=== PATIENT | female | born 1985 | race Two or more races ===

== ENCOUNTER 2017-12-17 11:19 | Emergency (ER) | payer SELFPAY ==
[~2017-12-17] VITALS: Ht 170.2 cm; Wt 99.8 kg
[2017-12-17 12:10] LABS: Basophils # (auto) 0.1 uL; Basophils % (auto) 0.7 % (0.0-2.0); Eosinophils # (auto) 0.2 uL; Eosinophils % (auto) 3.2 % (0.0-7.0); Hematocrit 40.8 % (36.0-46.0); Hemoglobin 13.4 g/dL (12.2-16.2); Lymphocytes # (auto) 2.1 uL; Lymphocytes % (auto) 27.4 % (10.0-50.0); Mean Corpuscular Hemoglobin 30.1 pg (28.0-32.0); Mean Corpuscular Hgb Conc. 32.8 g/dL (32.0-36.0); Mean Corpuscular Volume 91.7 fL (80.0-100.0); Monocytes # (auto) 0.5 uL; Monocytes % (auto) 6.1 % (0.0-12.0); Neutrophils # (auto) 4.7 uL; Neutrophils % (auto) 62.6 % (37.0-80.0); Platelet Count (auto) 302 10^3/uL (140-450); Red Blood Cells 4.45 10^6/uL (4.0-5.20); Red Cell Distribution Width 13.3 % (11.8-14.3); White Blood Cell 7.6 10^3/uL (4.4-10.8)
[2017-12-17 12:32] LABS: Albumin 3.3 g/dL (3.4-5.0); BUN/Creatinine Ratio 17.2; Calcium 8.1 mg/dL (8.5-10.1); Potassium 3.5 mmol/L (3.5-5.1)
[2017-12-17 12:34] LABS: Bilirubin, Total 0.5 mg/dL (0.2-1.0); Total Protein 7.3 g/dL (6.4-8.2)
[2017-12-17 13:14] VITALS: BP 120/63
[2017-12-17] MEDS ORDERED: SODIUM CHLORIDE 0.9% 1,000 ML IVB ONE (13:28)
[2017-12-17] MEDS ORDERED: ONDANSETRON HCL 4 MG/2 ML VIAL IV ONE (13:30)
[2017-12-17] MEDS ORDERED: FAMOTIDINE (10MG/ML) 2ML VL IV ONE (13:30)
[2017-12-17] MEDS ORDERED: PANTOPRAZOLE 40 MG/10 ML VIAL IV ONE (14:00)
[2017-12-17] MEDS ORDERED: KETOROLAC TROMETH 30 MG/ML 1ML VIAL IV ONE (15:45)
== END 2017-12-17 16:09 | disposition home or self-care (01) ==
LOC: ER 11:19
DX: K52.9 Noninfective gastroenteritis and colitis, unspecified (principal); K80.20 Calculus of gallbladder without cholecystitis without obstruction
CPT/HCPCS: 36415; 74176; 80053; 83690; 85025; 93005; 96361; 96374; 96375; 99285; C9113; J1885; J2405; J7030

== ENCOUNTER 2017-12-28 14:10 | Emergency (ER) | payer SELFPAY ==
[~2017-12-28] VITALS: Ht 170.2 cm; Wt 100.7 kg
[2017-12-28 15:06] LABS: Albumin 3.7 g/dL (3.4-5.0); BUN/Creatinine Ratio 20.7; Bilirubin, Total 0.5 mg/dL (0.2-1.0); Calcium 8.9 mg/dL (8.5-10.1); Potassium 3.8 mmol/L (3.5-5.1); Total Protein 7.8 g/dL (6.4-8.2)
[2017-12-28 15:23] LABS: Basophils # (auto) 0.1 uL; Basophils % (auto) 0.7 % (0.0-2.0); Eosinophils # (auto) 0.4 uL; Eosinophils % (auto) 3.8 % (0.0-7.0); Hematocrit 41.8 % (36.0-46.0); Hemoglobin 13.9 g/dL (12.2-16.2); Lymphocytes # (auto) 2.5 uL; Lymphocytes % (auto) 25.8 % (10.0-50.0); Mean Corpuscular Hemoglobin 30.1 pg (28.0-32.0); Mean Corpuscular Hgb Conc. 33.3 g/dL (32.0-36.0); Mean Corpuscular Volume 90.4 fL (80.0-100.0); Monocytes # (auto) 0.6 uL; Monocytes % (auto) 6.2 % (0.0-12.0); Neutrophils # (auto) 6.2 uL; Neutrophils % (auto) 63.5 % (37.0-80.0); Nucleated Red Blood Cells % 0.2 %; Platelet Count (auto) 368 10^3/uL (140-450); Red Blood Cells 4.62 10^6/uL (4.0-5.20); White Blood Cell 9.8 10^3/uL (4.4-10.8)
[2017-12-28 16:22] LABS: Urine Bacteria FEW /hpf (None Seen); Urine Blood Negative /uL (Negative); Urine Mucus FEW (None Seen); Urine Specific Gravity 1.029 (1.001-1.035); Urine WBC 13 /hpf (0 - 5)
[2017-12-28] MEDS ORDERED: HYDROcodone-ACET 5/325MG TAB PO ONE (23:15)
[2017-12-28] MEDS ORDERED: SODIUM CHLORIDE 0.9% 1,000 ML IV ONE (23:15)
[2017-12-29 03:44] VITALS: BP 114/68
== END 2017-12-29 03:03 | disposition home or self-care (01) ==
LOC: ER 14:10
DX: K80.20 Calculus of gallbladder without cholecystitis without obstruction (principal); Z88.0 Allergy status to penicillin
CPT/HCPCS: 36415; 74176; 80053; 81001; 81025; 83690; 85025

== ENCOUNTER 2018-09-12 09:45 | Inpatient (IN) | payer MEDICAID ==
[~2018-09-12] VITALS: Ht 170.2 cm; Wt 109.8 kg
[2018-09-12 10:29] LABS: Basophils # (auto) 0.1 uL; Basophils % (auto) 0.7 % (0.0-2.0); Eosinophils # (auto) 0.3 uL; Eosinophils % (auto) 2.7 % (0.0-7.0); Hematocrit 44.3 % (36.0-46.0); Hemoglobin 14.7 g/dL (12.2-16.2); Lymphocytes # (auto) 1.6 uL; Lymphocytes % (auto) 17.7 % (10.0-50.0); Mean Corpuscular Hemoglobin 29.2 pg (28.0-32.0); Mean Corpuscular Hgb Conc. 33.1 g/dL (32.0-36.0); Mean Corpuscular Volume 88.2 fL (80.0-100.0); Monocytes # (auto) 0.6 uL; Monocytes % (auto) 6.8 % (0.0-12.0); Neutrophils # (auto) 6.7 uL; Neutrophils % (auto) 72.1 % (37.0-80.0); Platelet Count (auto) 342 10^3/uL (140-450); Red Blood Cells 5.02 10^6/uL (4.0-5.20); Red Cell Distribution Width 13.9 % (11.8-14.3); White Blood Cell 9.3 10^3/uL (4.4-10.8)
[2018-09-12] MEDS ORDERED: SODIUM CHLORIDE 0.9% 1,000 ML IV ONE ×2 (10:34)
[2018-09-12 10:40] LABS: Albumin 3.6 g/dL (3.4-5.0); Amylase 54 U/L (25-115); Anion Gap 5 (5-15); Calcium 8.4 mg/dL (8.5-10.1); Carbon Dioxide 25 mmol/L (21-32); Chloride 106 mmol/L (98-107); Glucose 107 mg/dL (74-106); Lipase 123 U/L (73-393); Potassium 3.7 mmol/L (3.5-5.1); Sodium 136 mmol/L (136-145)
[2018-09-12 10:43] LABS: Alanine Aminotransferase 47 U/L (13-56); Alkaline Phosphatase 81 U/L (45-117); Aspartate Aminotransferase 22 U/L (15-37); Bilirubin, Total 1.1 mg/dL (0.2-1.0); GFR African American > 60 mL/min; GFR Non-African American > 60 mL/min; Total Protein 7.8 g/dL (6.4-8.2)
[2018-09-12 11:54] LABS: Blood Urea Nitrogen 11 mg/dL (7-18)
[2018-09-12 12:28] LABS: Urine Bacteria NONE SEEN /hpf (None Seen); Urine Blood 2+ /uL (Negative); Urine Hyaline Cast FEW /lpf (0 - 2); Urine Mucus FEW (None Seen); Urine WBC 7 /hpf (0 - 5)
[2018-09-12] MEDS ORDERED: MORPHINE SULFATE 10 MG/ML INJ 1ML SDV IV PRN (13:30)
[2018-09-12] MEDS ORDERED: ACETAMINOPHEN 500 MG TAB PO PRN (13:30)
[2018-09-12] MEDS ORDERED: NITROGLYCERIN 0.4 MG SL TAB SL PRN (13:30)
[2018-09-12] MEDS: metroNIDAZOLE 500MG/100ML 100 ML IV SCH ×2 (13:45→19:23)
[2018-09-12] MEDS: SODIUM CHLORIDE 0.9% 1,000 ML IV SCH ×2 (13:45→19:23)
[2018-09-12 13:54] LABS: INR 0.94 (0.9-1.15); Partial Thromboplastin Time 28.8 sec (23.78-33.04); Prothrombin Time 10.1 sec (9.27-12.13)
[2018-09-12 17:00] VITALS: BP 111/66
[2018-09-12] MEDS: MORPHINE SULFATE 10 MG/ML INJ 1ML SDV IV PRN (17:39)
[2018-09-12] MEDS: ONDANSETRON HCL 4 MG/2 ML VIAL IV PRN (17:39)
--- NOTE | 2018-09-12 19:40 | NUR ---
OPENING NOTES RECEIVED REPORT FROM DAYSHIFT NURSE. PT IS AWAKE AND ALERT X 4 WITH NO S/S OF DISTRESS NOR PAIN. BED IS IN LOWEST POSITION WITH BRAKES LOCKED AND CALL LIGHT IS WITHIN REACH. SIDE RAILS UP X 2. DISCUSSED POC WITH PATIENT. WILL CONTINUE TO MONITOR.
[2018-09-12 20:30] VITALS: BP 87/48
[2018-09-12] MEDS: HYDROcodone-ACET 5/325MG TAB PO PRN (23:03)
[2018-09-12] MEDS: DOCUSATE SOD 100 MG CAP PO SCH (23:03)
[2018-09-13] MEDS: metroNIDAZOLE 500MG/100ML 100 ML IV SCH ×4 (02:00→19:55)
[2018-09-13 05:01] VITALS: BP 82/45
[2018-09-13] MEDS: SODIUM CHLORIDE 0.9% 1,000 ML IV SCH ×3 (05:05→21:56)
[2018-09-13] MEDS: HYDROcodone-ACET 5/325MG TAB PO PRN ×3 (05:08→18:50)
[2018-09-13 06:19] LABS: Basophils # (auto) 0 uL; Basophils % (auto) 0.5 % (0.0-2.0); Eosinophils # (auto) 0.2 uL; Eosinophils % (auto) 3.6 % (0.0-7.0); Hematocrit 37.2 % (36.0-46.0); Hemoglobin 12.2 g/dL (12.2-16.2); Lymphocytes % (auto) 36.9 % (10.0-50.0); Mean Corpuscular Hemoglobin 29.2 pg (28.0-32.0); Mean Corpuscular Hgb Conc. 32.8 g/dL (32.0-36.0); Mean Corpuscular Volume 88.9 fL (80.0-100.0); Monocytes # (auto) 0.5 uL; Monocytes % (auto) 8.8 % (0.0-12.0); Neutrophils # (auto) 2.7 uL; Neutrophils % (auto) 50.2 % (37.0-80.0); Nucleated Red Blood Cells % 0.2 %; Platelet Count (auto) 258 10^3/uL (140-450); Red Blood Cells 4.18 10^6/uL (4.0-5.20); White Blood Cell 5.4 10^3/uL (4.4-10.8)
[2018-09-13 06:59] LABS: Chloride 112 mmol/L (98-107); Potassium 3.7 mmol/L (3.5-5.1); Sodium 141 mmol/L (136-145)
[2018-09-13 07:08] LABS: Alanine Aminotransferase 35 U/L (13-56); Albumin 2.7 g/dL (3.4-5.0); Alkaline Phosphatase 60 U/L (45-117); Anion Gap 4 (5-15); Aspartate Aminotransferase 17 U/L (15-37); BUN/Creatinine Ratio 10.3; Bilirubin, Total 0.7 mg/dL (0.2-1.0); Blood Urea Nitrogen 7 mg/dL (7-18); Calcium 7.6 mg/dL (8.5-10.1); Carbon Dioxide 25 mmol/L (21-32); GFR African American > 60 mL/min; GFR Non-African American > 60 mL/min; Glucose 110 mg/dL (74-106); Total Protein 5.8 g/dL (6.4-8.2)
--- NOTE | 2018-09-13 07:30 | NUR ---
OPENING NOTE ASSUMED CARE OF PT. PT IS LAYING ON BED, HOB SEMI-FOWLERS. PT IS A&O X4. ON ROOM AIR. O2 SATURATION 94%. NO SIGNS OF SOB/DISTRESS NOTED. SAFETY PRECAUTIONS IN PLACE INCLUDING BED SET TO BED SET TO LOWEST POSITION/LOCKED. BEDSIDE RAILS UP X2. CALL LIGHT WITHIN REACH. INSTRUCTED PT TO CALL FOR ASSISTANCE. DISCUSSED POC WITH PT. PT VERBALIZED UNDERSTANDING. WILL CONTINUE TO MONITOR Q 1HR AND PRN.
[2018-09-13 08:15] VITALS: BP 82/41
[2018-09-13] MEDS: DOCUSATE SOD 100 MG CAP PO SCH ×2 (10:24→22:05)
[2018-09-13 12:21] VITALS: BP 90/55
[2018-09-13] MEDS: LEVOFLOXACIN 500MG 100 ML IV SCH (15:41)
[2018-09-13 16:36] VITALS: BP 84/44
--- NOTE | 2018-09-13 18:30 | NUR ---
IV insertion IV access obtained, via clean sterile technique by inserting 20 gauge catheter at left FA after 2 attempt(s). IV secured properly. No trauma to site. Patient tolerated well.
--- NOTE | 2018-09-13 18:35 | NUR ---
IV removal IV DC'd with clean sterile technique, catheter fully intact. Pressure dressing applied to site. Patient tolerated well. NOTE:
[2018-09-13] MEDS: ONDANSETRON HCL 4 MG/2 ML VIAL IV PRN (18:49)
--- NOTE | 2018-09-13 19:37 | NUR ---
CLOSING NOTE ENDORSED CARE TO ADRIAN LANTIGUA.
--- NOTE | 2018-09-13 20:26 | NUR ---
OPENING NOTES RECEIVED REPORT FROM DAYSLAFT NURSE. PT IS AWAKE AND ALERT X 4 WITH NO S/S OF DISTRESS NOR PAIN. PATIENT PLACED UNDER NPO AFTER MIDNIGHT PER PRIMARY MD ORDERS; PATIENT VERBALIZED UNDERSTANDING. BED IS IN LOWEST POSITION WITH BRAKES LOCKED AND CALL LIGHT IS WITHIN REACH. SIDE RAILS UP X 2. DISCUSSED POC WITH PATIENT. WILL CONTINUE TO MONITOR.
--- NOTE | 2018-09-13 20:28 | NUR ---
UA UA SENT TO LAB AT 2009.
[2018-09-13 22:00] VITALS: BP 105/68
[2018-09-13] MEDS: MORPHINE SULFATE 10 MG/ML INJ 1ML SDV IV PRN (22:56)
[2018-09-14] MEDS: metroNIDAZOLE 500MG/100ML 100 ML IV SCH ×4 (03:08→19:41)
[2018-09-14 05:00] VITALS: BP 107/63
[2018-09-14] MEDS: SODIUM CHLORIDE 0.9% 1,000 ML IV SCH ×3 (05:06→21:31)
[2018-09-14 06:12] LABS: Basophils # (auto) 0 uL; Basophils % (auto) 0.5 % (0.0-2.0); Eosinophils # (auto) 0.2 uL; Eosinophils % (auto) 3.7 % (0.0-7.0); Hematocrit 38.2 % (36.0-46.0); Hemoglobin 12.4 g/dL (12.2-16.2); Lymphocytes # (auto) 1.7 uL; Lymphocytes % (auto) 38.3 % (10.0-50.0); Mean Corpuscular Hemoglobin 29.1 pg (28.0-32.0); Mean Corpuscular Hgb Conc. 32.6 g/dL (32.0-36.0); Mean Corpuscular Volume 89.2 fL (80.0-100.0); Monocytes # (auto) 0.4 uL; Monocytes % (auto) 8.5 % (0.0-12.0); Neutrophils # (auto) 2.2 uL; Nucleated Red Blood Cells % 0.1 %; Platelet Count (auto) 256 10^3/uL (140-450); Red Blood Cells 4.28 10^6/uL (4.0-5.20); Red Cell Distribution Width 13.9 % (11.8-14.3); White Blood Cell 4.5 10^3/uL (4.4-10.8)
[2018-09-14 06:36] LABS: Anion Gap 7 (5-15); BUN/Creatinine Ratio 5.4; Blood Urea Nitrogen 3 mg/dL (7-18); Calcium 7.7 mg/dL (8.5-10.1); Carbon Dioxide 25 mmol/L (21-32); Chloride 110 mmol/L (98-107); GFR African American > 60 mL/min; GFR Non-African American > 60 mL/min; Glucose 96 mg/dL (74-106); Potassium 3.5 mmol/L (3.5-5.1); Sodium 142 mmol/L (136-145)
--- NOTE | 2018-09-14 07:20 | NUR ---
OPENING NOTE ASSUMED CARE OF PT. PT IS LAYING ON BED, HOB LOW-FOWLERS. PT IS A&O X4. ON ROOM AIR. O2 SATURATION 95%. NO SIGNS OF SOB/DISTRESS NOTED. SAFETY PRECAUTIONS IN PLACE INCLUDING BED SET TO BED SET TO LOWEST POSITION/LOCKED. BEDSIDE RAILS UP X2. CALL LIGHT WITHIN REACH. INSTRUCTED PT TO CALL FOR ASSISTANCE. DISCUSSED POC WITH PT. PT VERBALIZED UNDERSTANDING. WILL CONTINUE TO MONITOR Q 1HR AND PRN.
[2018-09-14 09:00] VITALS: BP 101/61
[2018-09-14] MEDS: LEVOFLOXACIN 500MG 100 ML IV SCH (09:45)
[2018-09-14] MEDS: DOCUSATE SOD 100 MG CAP PO SCH ×2 (09:45→21:31)
[2018-09-14] MEDS: MORPHINE SULFATE 10 MG/ML INJ 1ML SDV IV PRN ×3 (09:46→22:11)
[2018-09-14] MEDS: ONDANSETRON HCL 4 MG/2 ML VIAL IV PRN (12:21)
[2018-09-14 13:00] VITALS: BP 102/64
[2018-09-14 14:43] LABS: INR 1.05 (0.9-1.15); Partial Thromboplastin Time 27.9 sec (23.78-33.04); Prothrombin Time 11.2 sec (9.27-12.13)
[2018-09-14 17:03] VITALS: BP 119/77
--- NOTE | 2018-09-14 19:19 | NUR ---
CLOSING NOTE ENDORSED CARE TO MEREDITH LANTIGUA.
--- NOTE | 2018-09-14 19:30 | NUR ---
OPENING NOTE REPORT RECEIVED FROM DAY SHIFT RN. PATIENT IS A/OX4 ABLE TO ANSWER ALL QUESTIONS APPROPRIATELY. PATIENT TO BE NPO AFTER MIDNIGHT FOR PROCEDURE TOMORROW. PT AWARE. POC FOR TONIGHT DISCUSSED AND ALL QUESTIONS ANSWERED. WILL MONITOR Q1H PRN THROUGHOUT SHIFT, CALL LIGHT WITHIN REACH.
[2018-09-14 22:00] VITALS: BP 100/61
[2018-09-15] MEDS: metroNIDAZOLE 500MG/100ML 100 ML IV SCH ×4 (01:00→19:45)
[2018-09-15 05:00] VITALS: BP 104/63
[2018-09-15] MEDS: MORPHINE SULFATE 10 MG/ML INJ 1ML SDV IV PRN ×2 (05:14→20:05)
[2018-09-15] MEDS: SODIUM CHLORIDE 0.9% 1,000 ML IV SCH ×3 (05:14→22:12)
[2018-09-15 06:25] LABS: Basophils # (auto) 0 uL; Basophils % (auto) 0.5 % (0.0-2.0); Eosinophils # (auto) 0.1 uL; Eosinophils % (auto) 2.9 % (0.0-7.0); Hematocrit 37.4 % (36.0-46.0); Hemoglobin 12.5 g/dL (12.2-16.2); Lymphocytes # (auto) 1.8 uL; Lymphocytes % (auto) 37.5 % (10.0-50.0); Mean Corpuscular Hemoglobin 29.2 pg (28.0-32.0); Mean Corpuscular Hgb Conc. 33.3 g/dL (32.0-36.0); Mean Corpuscular Volume 87.9 fL (80.0-100.0); Monocytes # (auto) 0.3 uL; Monocytes % (auto) 7.2 % (0.0-12.0); Neutrophils # (auto) 2.5 uL; Neutrophils % (auto) 51.9 % (37.0-80.0); Platelet Count (auto) 282 10^3/uL (140-450); Red Blood Cells 4.26 10^6/uL (4.0-5.20); Red Cell Distribution Width 13.8 % (11.8-14.3); White Blood Cell 4.7 10^3/uL (4.4-10.8)
[2018-09-15 06:39] LABS: Anion Gap 7 (5-15); Blood Urea Nitrogen 5 mg/dL (7-18); Calcium 7.8 mg/dL (8.5-10.1); Carbon Dioxide 24 mmol/L (21-32); Chloride 108 mmol/L (98-107); Glucose 106 mg/dL (74-106); Potassium 3.7 mmol/L (3.5-5.1); Sodium 139 mmol/L (136-145)
[2018-09-15 06:40] LABS: BUN/Creatinine Ratio 7.8; GFR African American > 60 mL/min; GFR Non-African American > 60 mL/min
[2018-09-15] MEDS ORDERED: SUCCINYLCHOLINE CHLORIDE 20 MG/ML 10ML VIAL IV ONE (06:49)
[2018-09-15] MEDS ORDERED: MIDAZOLAM HCL 1MG/1ML-2 ML VIAL ONE (06:54)
[2018-09-15] MEDS ORDERED: fentaNYL CITRATE 100 MCG/2 ML VL ONE (06:54)
[2018-09-15] MEDS ORDERED: KETOROLAC TROMETH 60MG/2ML VIAL IM ONE (06:54)
[2018-09-15] MEDS ORDERED: SODIUM CHLORIDE LOCK 10 ML ONE (06:54)
[2018-09-15] MEDS ORDERED: GLYCOPYRROLATE 0.2 MG/ML 1ML VIAL ONE (06:54)
[2018-09-15] MEDS ORDERED: MEPERIDINE HCL (50 MG/ML) 1 ML VIAL ONE (06:54)
[2018-09-15] MEDS ORDERED: ROCURONIUM 10MG/ML 10ML VIAL IV ONE (06:54)
[2018-09-15] MEDS ORDERED: ONDANSETRON HCL 4 MG/2 ML VIAL ONE (06:54)
[2018-09-15] MEDS ORDERED: PROPOFOL 10 MG/ML 20 ML IV ONE ×2 (06:54→10:41)
[2018-09-15] MEDS ORDERED: NEOSTIGMINE 1 MG/ML INJ (10mg/10ML VIAL) ONE (06:54)
[2018-09-15] MEDS ORDERED: LIDOCAINE HCL 2% TOP JELLY 5ML TOP ONE (06:55)
--- NOTE | 2018-09-15 07:15 | NUR ---
CLOSING NOTE REPORT ENDORSED TO DAY SHIFT RN PT NPO SINCE MIDNIGHT AWAITING PROCEDURE NO S/S OF DISTRESS CALL LIGHT WITHIN REACH
--- NOTE | 2018-09-15 07:20 | NUR ---
OPENING NOTE ASSUMED CARE OF PT. PT IS LAYING ON BED, HOB LOW-FOWLERS. PT IS A&O X4. ON ROOM AIR. O2 SATURATION 91%. NO SIGNS OF SOB/DISTRESS NOTED. SAFETY PRECAUTIONS IN PLACE INCLUDING BED SET TO BED SET TO LOWEST POSITION/LOCKED. BEDSIDE RAILS UP X2. CALL LIGHT WITHIN REACH. INSTRUCTED PT TO CALL FOR ASSISTANCE. DISCUSSED POC WITH PT. PT VERBALIZED UNDERSTANDING. WILL CONTINUE TO MONITOR Q 1HR AND PRN.
[2018-09-15] MEDS ORDERED: METOCLOPRAMIDE HCL 5MG/ml INJ 2ml VIAL IV ONE (07:45)
[2018-09-15] MEDS ORDERED: KETOROLAC TROMETH 30 MG/ML 1ML VIAL IV ONE (07:45)
[2018-09-15] MEDS ORDERED: POVIDONE IODINE 10 % TOPICAL OINT 30GM TOP ONE (08:24)
[2018-09-15] MEDS ORDERED: SIMETHICONE 40 MG/0.6 ML ORAL DROP ONE (08:54)
[2018-09-15 09:20] VITALS: BP 96/58
[2018-09-15] MEDS: LEVOFLOXACIN 500MG 100 ML IV SCH (10:00)
[2018-09-15] MEDS: DOCUSATE SOD 100 MG CAP PO SCH ×2 (10:00→22:00)
--- NOTE | 2018-09-15 10:05 | NUR ---
PATIENT OFF UNIT VIA BED TO OR.
[2018-09-15] MEDS ORDERED: ceFAZolin 1GM/50ML 0 ML IV ONE (10:12)
[2018-09-15] MEDS ORDERED: LEVOFLOXACIN 500MG 100 ML IV ONE (10:13)
[2018-09-15] MEDS: HYDROmorphone HCL 2 MG/ML VL IV PRN ×2 (11:52→12:12)
--- NOTE | 2018-09-15 12:35 | NUR ---
PATIENT BACK ON UNIT VIA BED FROM OR. DRESSING CLEAN, DRY AND INTACT. NO SIGNS OF SOB/DISTRESS NOTED. WILL CONTINUE TO MONITOR.
[2018-09-15 13:00] VITALS: BP 109/73
[2018-09-15] MEDS: ONDANSETRON HCL 4 MG/2 ML VIAL IV PRN (15:13)
--- NOTE | 2018-09-15 15:36 | NUR ---
NUTRITION ASSESSMENT NOTES Please refer to link notes of nutrition screen form filed under the intervention section of the plan of care for further details. Est. Needs: 1600 kcal to 1950 kcal (15-20 kcal/kgBW), 86 gms to 108 gms pro (1.0-1.2 gms/kgIBW: 86 kg). Will continue to monitor pertinent labs and reassess nutrient needs prn Thank you. Addendum: 09/15/18 at [address] Amended: Links added.
[2018-09-15 16:57] VITALS: BP 95/53
[2018-09-15] MEDS: HYDROcodone-ACET 5/325MG TAB PO PRN (17:44)
--- NOTE | 2018-09-15 19:15 | NUR ---
CLOSING NOTE ENDORSED CARE TO MEREDITH LANTIGUA.
--- NOTE | 2018-09-15 19:30 | NUR ---
OPENING NOTE REPORT RECEIVED FROM DAY SHIFT RN PATIENT IS A/OX4 RESTING IN BED. PATIENT C/O 9/10 PAIN TO INCISION SITE. PATIENT HAS 2 ANTERIOR MEDIAL ABDOMEN INCISIONS. DRESSINGS SATURATED WITH OLD BETADINE, NO S/S OF ACTIVE BLEED NOTED. YOLA DRAIN NOTED TO RIGHT LATERAL SIDE DRAINING SANGUINEOUS FLUID. INCENTIVE SPIROMETER AT BEDSIDE, PATIENT ABLE TO REACH 1000ML. SCD'S IN PLACE ON BILATERAL LEGS. POC FOR TONIGHT DISCUSSED, ALL QUESTIONS ANSWERED. WILL MEDICATE PT OR PAIN PER MD ORDER. CALL LIGHT WITHIN REACH.
[2018-09-15 20:05] VITALS: BP 111/62
--- NOTE | 2018-09-15 20:05 | NUR ---
PT REQUESTED MORPHINE FOR PAIN BP CHECKED AND IS AT 111/62, MORPHINE ADMINISTERED ORDERED BY
[2018-09-15 22:00] VITALS: BP 105/61
[2018-09-16] MEDS: metroNIDAZOLE 500MG/100ML 100 ML IV SCH ×3 (01:17→13:22)
[2018-09-16] MEDS: MORPHINE SULFATE 10 MG/ML INJ 1ML SDV IV PRN ×2 (01:27→09:31)
[2018-09-16 04:54] VITALS: BP 111/62
[2018-09-16] MEDS: SODIUM CHLORIDE 0.9% 1,000 ML IV SCH (05:08)
[2018-09-16 06:41] LABS: Basophils # (auto) 0 uL; Basophils % (auto) 0.4 % (0.0-2.0); Eosinophils # (auto) 0.1 uL; Eosinophils % (auto) 1.2 % (0.0-7.0); Hematocrit 36.2 % (36.0-46.0); Hemoglobin 12.2 g/dL (12.2-16.2); Lymphocytes # (auto) 1.2 uL; Lymphocytes % (auto) 18.8 % (10.0-50.0); Mean Corpuscular Hemoglobin 29.3 pg (28.0-32.0); Mean Corpuscular Hgb Conc. 33.6 g/dL (32.0-36.0); Mean Corpuscular Volume 87.1 fL (80.0-100.0); Monocytes # (auto) 0.4 uL; Monocytes % (auto) 6.8 % (0.0-12.0); Neutrophils # (auto) 4.8 uL; Neutrophils % (auto) 72.8 % (37.0-80.0); Platelet Count (auto) 270 10^3/uL (140-450); Red Blood Cells 4.16 10^6/uL (4.0-5.20); White Blood Cell 6.6 10^3/uL (4.4-10.8)
[2018-09-16 06:57] LABS: Chloride 108 mmol/L (98-107); Potassium 3.4 mmol/L (3.5-5.1); Sodium 138 mmol/L (136-145)
--- NOTE | 2018-09-16 07:06 | NUR ---
CLOSING NOTE REPORT ENDORSED TO DAY SHIFT RN PATIENT IS RESTING IN BED, NO S/S OF DISTRESS DRESSINGS TO ABD INTACT, SCD'S IN PLACE, YOLA DRAIN TO BULB SUCTION CALL LIGHT WITHIN REACH
[2018-09-16 07:15] LABS: Anion Gap 5 (5-15); Blood Urea Nitrogen 3 mg/dL (7-18); Calcium 7.8 mg/dL (8.5-10.1); Carbon Dioxide 25 mmol/L (21-32); Glucose 112 mg/dL (74-106)
[2018-09-16 07:24] LABS: GFR African American > 60 mL/min; GFR Non-African American > 60 mL/min
--- NOTE | 2018-09-16 07:30 | NUR ---
Opening Shift Note Assumed care of patient, awake and alert, lying on bed. No S/S of distress/SOB or pain. Instructed on POC and to call for assist PRN, will continue to monitor for changes Q1hr and PRN.
[2018-09-16] MEDS: DOCUSATE SOD 100 MG CAP PO SCH (09:15)
[2018-09-16] MEDS: LEVOFLOXACIN 500MG 100 ML IV SCH (09:15)
[2018-09-16 10:12] VITALS: BP 120/67
--- NOTE | 2018-09-16 11:04 | NUR ---
DIET PT REQUESTING TO ADVANCE HER DIET, PT CURRENTLY ON CLEAR LIQUID . PAGED DR. LAWTON, WAITING FOR CALL BACK.
[2018-09-16] MEDS ORDERED: HYDR-4683 PO ×2 (11:38→11:39)
[2018-09-16] MEDS ORDERED: ACE650RS PR (11:39)
[2018-09-16] MEDS ORDERED: LEVO500T21 PO (11:39)
[2018-09-16] MEDS ORDERED: METR500T PO (11:39)
[2018-09-16] MEDS: POTASSIUM CHL 20 Meq TABLET PO SCH ×2 (11:48→15:29)
--- NOTE | 2018-09-16 11:56 | NUR ---
Clearance for discharge Follow up Paged for Dr. Lozano regarding diet and if pt is okay for discharge, waiting for call back.
[2018-09-16 13:00] VITALS: BP 148/77
--- NOTE | 2018-09-16 13:01 | NUR ---
Called Dr. Lozano, no answer, left a message to call back for DC clearance. Waiting for call back.
--- NOTE | 2018-09-16 13:14 | NUR ---
DR. LAWTON CALLED ELEMENTARY INSTRUCTIONAL COACH [facility], PER DR. LAWTON PT IS CLEARED FOR DISCHARGE.
--- NOTE | 2018-09-16 14:39 | NUR ---
PAGED CYLINDER PRESS OPERATOR HELPER NUT GRADER FOR CONSULT.
--- NOTE | 2018-09-16 14:44 | NUR ---
NIEVES [employer]SI[employer] STUDIES PROGRAM CHAIR CALLED, SHE SAID TO GIVE THE PT THE PHONE NUMBER OF DR. LAWTON AND DR. Lev ANGUIANO AND INSTRUCT PT TO CALL FOR HER APPOINTMENT SINCE OFFICE IS CLOSE ON WEEKEND.
[2018-09-16] MEDS ORDERED: POTASSIUM CHL 20 Meq TABLET PO ONE (15:30)
[2018-09-16] MEDS: HYDROcodone-ACET 5/325MG TAB PO PRN (15:30)
--- NOTE | 2018-09-16 15:40 | NUR ---
PT EDUCATED ON HOW TO DRAIN THE YOLA, PT ABLE TO DEMONSTRATE CORRECTLY HOW TO DRAIN THE YOLA.
--- NOTE | 2018-09-16 16:00 | NUR ---
Discharge instructions given as ordered. Encourage to follow up with DR. ANGUIANO IN [address] LAWTON IN 1 WEEK, TE# AND ADDRESS PROVIDED TO THE PT. PT INSTRUCTED TO CALL THE OFFICE ON TUESDAY FOR APPOINTMENT SINCE OFFICE ARE CLOSE ON WEEKEND. PT VERBALIZED SHE WILL MAKE SURE SHE WILL SCHEDULE HER APPOINTMENT. All questions and concerns addressed. Patient verbalized understanding. Medication reconciliation form completed and copy given to patient. IV removed with catheter intact, pressure dressing applied. Patient taken to vehicle via wheelchair with all personal belongings, accompanied by staff and family member. No distress noted at time of departure.
== END 2018-09-16 17:41 | disposition home or self-care (01) | DRG 263 ==
LOC: ER 09:45 → OVERFLOW 13:26 → WEST WING 15:13
PROVIDERS: ADMIT Nurse Practitioner Acute Care; ATTEND Internal Medicine
PROC: 0FT44ZZ Resection of Gallbladder, Percutaneous Endoscopic Approach (ICD-10-PCS; principal; 2018-09-15 10:19)
DX: K80.00 Calculus of gallbladder with acute cholecystitis without obstruction (principal); E66.01 Morbid (severe) obesity due to excess calories; N39.0 Urinary tract infection, site not specified; Z87.442 Personal history of urinary calculi; Z68.37 Body mass index [BMI] 37.0-37.9, adult
CPT/HCPCS: 36415; 71045; 74176; 76705; 80048; 80053; 81001; 81025; 82150; 82247; 83690; 84484; 84702; 85025; 85610; 85730; 86850; 86900; 86901; 87086; G0378; J0330; J0690; J1885; J1956; J2250; J2405; J2704; J3490

== ENCOUNTER → 2019-12-06 | Emergency (ER) | payer MEDICAID ==
[~2019-12-06] VITALS: Ht 170.2 cm; Wt 95.3 kg
[~2019-12-06] MED LIST: ACE650RS PR; HYDR-4833 PO; LEVO500T21 PO; METR500T PO
[2019-12-06 08:44] VITALS: BP 153/87
== END | disposition home or self-care (01) ==
LOC: ER 08:32
DX: J20.9 Acute bronchitis, unspecified (principal); F17.210 Nicotine dependence, cigarettes, uncomplicated; F41.9 Anxiety disorder, unspecified
CPT/HCPCS: 71046

== ENCOUNTER 2020-01-09 18:34 | Emergency (ER) | payer MEDICAID ==
[~2020-01-09] VITALS: Ht 170.2 cm; Wt 104.8 kg
[2020-01-09 19:56] VITALS: BP 111/76
[2020-01-09] MEDS ORDERED: KETOROLAC TROMETH 60MG/2ML VIAL IM ONE (20:45)
== END 2020-01-09 21:38 | disposition home or self-care (01) ==
LOC: ER 18:38
DX: K64.4 Residual hemorrhoidal skin tags (principal); F17.210 Nicotine dependence, cigarettes, uncomplicated; Z88.0 Allergy status to penicillin